=== PATIENT | female | born 1980 | race Caucasian/White ===

== ENCOUNTER → 2016-08-02 | Outpatient (CLI) | payer BC ==
[~2016-08-02] MED LIST: ADAL40KI INJ; ALBUAER INH; AMPH20TA2 PO; BUPR-79 PO; BUPR150T5 PO; EFFSR75 PO; GLC850 PO; LDN500 PO; MAGNESIUM PO; OXYC-57 PO; PHEN-775 PO; SPRN100 PO; VTMD
== END | disposition home or self-care (01) ==
LOC: C.PATHSPEC 17:14
PROVIDERS: ATTEND Obstetrics & Gynecology
DX: N92.6 Irregular menstruation, unspecified (principal); N85.8 Other specified noninflammatory disorders of uterus

== ENCOUNTER 2016-08-09 07:42 | Observation (INO) | payer BC ==
[2016-08-02 15:33] VITALS: BMI 46.0
--- NOTE | 2016-08-02 16:04 | PAT Medication Instructions ---
Service Date Aug 02, 2016. Current Home Medication List Adalimumab (Humira Pen), 40 MG INJ 2XMONTH Albuterol Sulfate (Proventil Hfa), 2 PUFFS INH PRN Amphetamine-Dextroamphetamine 20MG (Adderall 20MG), 20 MG PO TID Bupropion (Wellbutrin Sr), 350 MG PO QAM Etodolac (Etodolac), 500 MG PO BID Metformin HCl (Metformin HCl), 850 MG PO BID Venlafaxine Hcl (Effexor Extended Rel), 225 MG PO QAM [Magnesium], 225 MG PO QAM Medication Instructions For Your Scheduled Surgery Adalimumab (Humira Pen), 40 MG INJ 2XMONTH (check with prescribing physician for instructions) Etodolac (Etodolac), 500 MG PO BID (check with surgeon for instructions) - Hold the following medications 48 hours prior to surgery: Metformin HCl (Metformin HCl), 850 MG PO BID - Hold the following medications the morning of surgery: [Magnesium], 225 MG PO QAM Amphetamine-Dextroamphetamine 20MG (Adderall 20MG), 20 MG PO TID - Take the following medications the morning of surgery with a sip of water: Venlafaxine Hcl (Effexor Extended Rel), 225 MG PO QAM Bupropion (Wellbutrin Sr), 350 MG PO QAM Albuterol Sulfate (Proventil Hfa), 2 PUFFS INH PRN (bring with you to hospital morning of surgery) - Take the following medications as scheduled the night before surgery: Amphetamine-Dextroamphetamine 20MG (Adderall 20MG), 20 MG PO TID If you have any questions please call us at [phone] (Randa Gerardo PA-C ) or [phone] or [phone]
[2016-08-02 16:22] LABS: BASO % 0.3 %; BASO ABS # 0.04 K/uL (0-0.2); COMPLETE YES; EOS % 0.7 %; HEMATOCRIT 38.9 % (37-47); IG% 0.4 %; LYMPH % 23.5 %; LYMPH ABS # 2.96 K/uL (1.2-3.4); MEAN CELL VOLUME 83.5 fL (80-100); MEAN CORPUSCULAR HEMOGLOBIN 29.4 pg (25-34); MEAN CORPUSCULAR HGB CONC 35.2 g/dl (32-36); MEAN PLATELET VOLUME 10.6 fL (7.4-10.4); NEUT % 69.1 %; PLATELET COUNT 321 K/uL (130-400); RED BLOOD COUNT 4.66 M/uL (4.2-5.4); WHITE BLOOD COUNT 12.59 K/uL (4.8-10.8)
[2016-08-02 16:33] LABS: PARTIAL THROMBOPLASTIN RATIO 1.1; PROTHROMBIN TIME (PATIENT) 10.3 SECONDS (9.0-12.0)
[2016-08-02 16:45] LABS: ALT/SGPT 17 U/L (12-78); BLOOD UREA NITROGEN 14 mg/dl (7-18); BUN/CREATININE RATIO 16.3 (10-20); CALCIUM 8.8 mg/dl (8.5-10.1); CARBON DIOXIDE 29 mmol/L (21-32); CHLORIDE 105 mmol/L (98-107); CREATININE 0.86 mg/dl (0.60-1.20); GLUCOSE 102 mg/dl (70-99); POTASSIUM 3.6 mmol/L (3.5-5.1); SODIUM 141 mmol/L (136-145)
[2016-08-02 16:48] LABS: ALB/GLOB RATIO 0.8 (0.9-2); ALKALINE PHOSPHATASE 136 U/L (45-117); AST/SGOT 9 U/L (15-37)
[~2016-08-09] VITALS: Ht 162.6 cm; Wt 122.7 kg
[~2016-08-09 07:42] MED LIST changes: -BUPR150T5 PO; +CEFAZOLIN 3000 MG/65 ML D5W 50 ML IV SCH; +LACTATED RINGER'S 1000ML 1,000 ML IV SCH; -OXYC-57 PO; -PHEN-775 PO; -SPRN100 PO; -VTMD
[2016-08-09 08:04] VITALS: BP 150/77; PULSE 78; TEMP 36.9; O2SAT 98; Ht 162.6 cm; Wt 122.7 kg
[2016-08-09] MEDS ORDERED: NEOSTIGMINE METHYLSULFATE 5 MG/5 ML SYR ONE (08:37)
[2016-08-09] MEDS ORDERED: DEXAMETHASONE SOD INJ 4 MG/ML VIAL ONE (08:37)
[2016-08-09] MEDS ORDERED: PROPOFOL IV EMULSION 10 MG/ML 20 ML VIAL IV ONE (08:37)
[2016-08-09] MEDS ORDERED: FENTANYL CITRATE INJ 50 MCG/1 ML 2 ML VIAL ONE ×4 (08:37→12:46)
[2016-08-09] MEDS ORDERED: MIDAZOLAM HCL 1 MG/ML 2ML VIAL ONE (08:37)
[2016-08-09] MEDS ORDERED: GLYCOPYRROLATE INJ 0.2 MG/ML VIAL ONE ×2 (08:37→14:56)
[2016-08-09] MEDS ORDERED: ONDANSETRON INJ 2 MG/ML 2 ML VIAL ONE ×2 (08:37→11:51)
[2016-08-09] MEDS ORDERED: LIDOCAINE HCL 2% 2 ML VIAL (20MG/ML) ONE (08:37)
[2016-08-09] MEDS ORDERED: ROCURONIUM BROMIDE 10 MG/ML 5 ML VIAL ONE ×2 (08:37→14:56)
[2016-08-09] MEDS ORDERED: METHYLENE BLUE 0.5% 10 ML VIAL ONE (08:56)
[2016-08-09] MEDS ORDERED: BUPIVACAINE 0.5 % 5 MG/1 ML MPF 30ML VIAL ONE (08:56)
--- NOTE | 2016-08-09 08:58 | History & Physical Bridge Note ---
H&P Re-Evaluation Bridge Note: I have examined the patient, reviewed the History & Physical and in the interval since the performance of the History & Physical I have noted the following changes of clinical significance: No changes noted
[2016-08-09] MEDS ORDERED: MoRPHine SULFATE 10 MG/ML CARP/VIAL IV PRN (09:00)
[2016-08-09] MEDS ORDERED: ATROPINE SULFATE 0.1 MG/ML 5ML SYR IV PRN (09:00)
[2016-08-09] MEDS ORDERED: PROMETHAZINE HCL INJ 12.5 MG in SODIUM CHLORIDE 0.9% 50ML 50 ML IV PRN ×2 (09:00→12:30)
[2016-08-09] MEDS ORDERED: ONDANSETRON INJ 2 MG/ML 2 ML VIAL IV PRN ×2 (09:00→12:30)
[2016-08-09] MEDS ORDERED: MEPERIDINE HCL 25 MG/ML CARP IV PRN (09:00)
[2016-08-09] MEDS ORDERED: EpHEDrine SULFATE INJ 50 MG/ML AMP IV PRN (09:00)
[2016-08-09] MEDS ORDERED: OXYCODONE/ACETAMINOPHEN 5-325 TAB PO PRN (12:30)
[2016-08-09] MEDS ORDERED: KETOROLAC TROMETHAMINE 30 MG/ML VIAL IV. PRN (12:30)
[2016-08-09] MEDS ORDERED: SIMETHICONE 80 MG CHEW PO PRN (12:30)
[2016-08-09] MEDS ORDERED: IBUPROFEN 600 MG TAB PO PRN (12:30)
--- NOTE | 2016-08-09 12:41 | [facility] Post Operative Brief Note ---
Immediate Operative Summary Operative Date Aug 09, 2016. Pre-Operative Diagnosis Dysmenorrhea; Irregular Menses Post-Operative Diagnosis Same as preop Procedure(s) Performed Robot Assist Total Laparoscopic Hysterectomy, Bilateral Salpingectomy; Cystoscopy Surgeon Dr. Zamora Hand Paster Surgeon(s) Dr. Gilman Estimated Blood Loss 5 ml Findings Normal appearing uterus. Left ovary with small functional-appearing cyst, right ovary normal. Left fallopian tube normal, right tube with small paratubal cyst. Bowels appear normal, appendix not visualized. Specimens A. Cervix, Uterus, Bilateral Fallopian Tubes Drains bynum, clear yellow Anesthesia general Complication(s) None Disposition Recovery Room / PACU
[2016-08-09] MEDS ORDERED: OXYC-57 PO (12:42)
--- NOTE | 2016-08-09 12:43 | Discharge Instructions ---
Discharge Instructions Date of Service Aug 09, 2016. Admission Reason for Admission: Irregular Menstrual Cycle, Ovarian Cyst, Uterine C Discharge Discharge Diagnosis / Problem: s/p robotic total hysterectomy Discharge Goals Goal(s): Routine recovery after surgery Activity Recommendations Activity Limitations: per Instructions/Follow-up section . Instructions / Follow-Up Instructions / Follow-Up POST OPERATIVE: BOWEL FUNCTION/MEDICATIONS: 1. Constipation pain and discomfort are the most common complaints 5-7 days after surgery. Points 2-6 address the things that can help. 2. Chewing gum can help stimulate the gut and help improve digestion and motility. 3. Milk of Magnesia 1-2 times per day until return of bowel function. 4. Colace is a stool softener that helps. Taking this 2-3 times per day until bowel function returns to normal is highly recommended. 5. Dulcolax is a laxative that may be used if several days have passed without a bowel movement. Alternatively Miralax may be used daily instead. 6. Drink plenty of fluids as this will also reduce constipation. 7. Narcotic pain medications will be prescribed by your physician. They are safe to use and we encourage you to use them. If you are not allergic, ibuprofen will also be prescribed. Many patients will be able to transition off of the narcotic medications to ibuprofen by postoperative day 3. ACTIVITY RECOMMENDATIONS: 1. Get plenty of rest and listen to your body. If you are tired, take a nap. 2. You may shower, but do not take a tub bath until you see your doctor at the 2 week post operative visit. 3. Absolutely NO intercourse and nothing in the vagina until you are examined by your doctor at the 6 week visit. At that visit it will be determined when such activities can be resumed. This can range from 6-12 weeks after your surgery depending on healing time. 4. The main physical activity in the first week should be walking. By the second week you can slowly increase activity. There are no limits on walking up and down stairs. 5. Do not lift more than 5-10 lbs for 4 weeks. Remember the "one-handed rule", i.e. if you can lift something with only one hand it's likely okay. 6. Minimize tier lift operator like vacuuming and exercising for 4 weeks. "Overdoing it" can lead to incisions not healing, pain and vaginal bleeding , so again, listen to your body. 7. Driving can be resumed when you feel able. Do not drive within 24 hours of taking a narcotic medication. EXPECTATIONS: 1. Vaginal spotting, bleeding and discharge are common after surgery. There may even be an odor to the discharge which is often related to sutures used in the vagina. If you experience heavy vaginal bleeding, call the office number day or night [phone]. 2. Bladder discomfort is common after surgery from the catheter. This usually resolves in 1-2 weeks. 3. By the end of the 3rd or 4th week you should be feeling much better. It may take up to 6 weeks for your energy levels to return to normal. 4. Narcotic medications have side effects such as: dizziness, headache, nausea and/or vomiting. If you suspect your pain medication is causing problems, call our office and we may be able to prescribe an alternate medication. 5. The skin incisions are often covered with a liquid bandage. This will gradually peel off over time. CALL THE OFFICE IF YOU HAVE ANY OF THE FOLLOWIN. Temperature of 101 degrees or higher. 2. Severe abdominal or pelvic pain not relieved by pain medication. 3. Persistent nausea or vomiting. 4. Increased pain with urination or difficulty urinating. 5. Bright red bleeding that soaks more than 1 pad per hour. CONTACT PHONE NUMBERS: Main Office: [phone] Surgical Nurse: [phone] extension [phone] Avoid all tobacco products. If you need help to stop smoking, call [place]'s FREE QUITLINE at . This is a free call. Current Hospital Diet Patient's current hospital diet: Discharge Diet Recommended Diet: Regular Diet Procedures Procedures Performed: Robot Assist Total Laparoscopic Hysterectomy, Bilateral Salpingectomy; Cystoscopy Pending Studies Studies pending at discharge: no Medical Emergencies . Who to Call and When: Medical Emergencies: If at any time you feel your situation is an emergency, please call 911 immediately. . Non-Emergent Contact Non-Emergency issues call your: Primary Care Provider, President + Publisher . . "Provider Documentation" section prepared by Ester Zamora. VTE Core Measure Inpt VTE Proph given/why not?: Sharon Caro, SCD's
[2016-08-09] MEDS ORDERED: ESMOLOL HCL 10 MG/ML 10 ML VIAL ONE (12:50)
--- NOTE | 2016-08-09 12:51 | DIAGNOSTIC IMAGING REPORT ---
KUB CLINICAL HISTORY: Incorrect instrument count COMPARISON STUDY: None. FINDINGS: No metallic foreign bodies are identified within the abdomen or the pelvis. Two indeterminate radiodensities project of the right mid abdomen, measuring up to 1.2 cm. IMPRESSION: 1. No metallic foreign bodies within the abdomen or pelvis. 2. 2 radiodensities projecting over the right mid abdomen. While indeterminate, these are not metallic do not suggest retained foreign bodies. Electronically signed by: Radames Lopez M.D. 08/09/2016 12:49 PM Dictated Date/Time: 08/09/2016 12:48 PM
[2016-08-09] MEDS: FENTANYL CITRATE INJ 50 MCG/1 ML 2 ML VIAL IV PRN ×3 (12:55→13:05)
--- NOTE | 2016-08-09 13:26 | OPERATIVE REPORT ---
DATE OF OPERATION: 08/09/2016 PREOPERATIVE DIAGNOSES: Dysmenorrhea, irregular menses, and heavy menses. POSTOPERATIVE DIAGNOSES: Same. PROCEDURES PERFORMED: Robotic assisted total laparoscopic hysterectomy, bilateral salpingectomy and cystoscopy. SURGEON: Ester Zamora DO AGENTS' RECORDS CLERK: Dr. Gilman ESTIMATED BLOOD LOSS: 5 mL. FINDINGS: Normal appearing uterus. Left ovary with small functional appearing cyst. Right ovary, normal. Left fallopian tube, normal. Right tube with small paratubal cyst. Bowel appeared normal. Appendix not visualized. SPECIMENS: Cervix, uterus and bilateral fallopian tubes. DRAINS: Neumann, clear yellow. ANESTHESIA: General. COMPLICATIONS: None. DISPOSITION: Recovery room PACU. CONDITION: Stable and good. INDICATIONS FOR PROCEDURE: The patient is a 35-year-old G1, P1, who had presented with a multiyear history of cramping and irregular bleeding. She had tried IUD, oral contraceptive pills, and NuvaRing, but these were all unsuccessful. Her Mirena had caused increased cramping and bleeding. Oral contraceptive pills and NuvaRing were ineffective to control her symptoms. She had described cramping that occurred prior to, during, and after her periods and that period occurred randomly, sometimes 2-3 times per month. The cramping was interfering with her daily activities. The patient had a history of section x1 and laparoscopic gallbladder surgery. The patient's has had a vasectomy and they have completed child bearing. DESCRIPTION OF PROCEDURE: The patient was seen in the preoperative holding area, where risks, benefits, and alternatives to surgery were reviewed. She had previously signed informed consent in the office under no duress. All questions of the patient and her were answered. She was taken to the operating room, where general anesthesia was introduced. Ancef was infused as a preoperative antibiotic. A timeout was confirmed. She was prepared and draped in the usual sterile fashion with feet in Yellofin stirrups in the dorsal lithotomy position. A weighted speculum was placed in the vagina and cervix was visualized and the anterior lip was grasped with a single tooth tenaculum. Bilateral stay sutures were placed at 3 o'clock and 9 o'clock. The VCare uterine manipulator was placed after the cervix was dilated to admit this and the stay sutures were tied to the green cup. The Neumann catheter was placed and clear yellow urine was seen. Gloves and gown were changed and attention was then turned to the abdomen, where an infraumbilical incision was made using a scalpel and this was carried through to the underlying fascia using sharp and blunt technique. Using the open Cici technique, the supraumbilical trocar was placed. The camera was inserted and intra-abdominal placement was identified. CO2 gas was used to insufflate the abdomen to 15 mmHg. The patient was placed in Trendelenburg position. Under direct visualization, the bilateral lateral ports were placed with incisions for robotic arms 1, 2 and 3 and an first assistant manager port. The pelvis was visualized and the above noted findings were seen. Prior to placement of each trocar, the incision site was injected with 0.25% Marcaine for local anesthesia. They were placed under direct visualization. The robot was docked. There was a small omental adhesion to the anterior abdominal wall. This was easily taken down robotically with excellent hemostasis noted. First, the left fallopian tube was grasped and transected to the mesosalpinx and removed using the first assistant manager port and in a similar fashion, the right fallopian tube was transected and removed. The left round ligament was coagulated and transected as well as the left uteroovarian ligament. The anterior leaf of the broad ligament was then transected and the bladder was carefully dissected from the anterior aspect of the uterus. In a similar fashion, the right round ligament and uteroovarian ligament were coagulated and transected and the anterior leaf of the broad ligament was further dissected from the anterior aspect of the uterus. The uterine vessels were skeletonized and coagulated and cut. The vaginal cuff incision was made in a circumferential fashion using monopolar scissors and the uterus and cervix were delivered through the vagina. The vaginal cuff was closed using V-Loc suture in a running stitch. The cuff was inspected and excellent hemostasis was noted. The cuff was reinspected with a low pressure test with intraabdominal pressure. The CO2 pressure taken down to 0 and again excellent hemostasis was confirmed. Cystoscopy was performed to visualize the bladder and methylene blue was given and blue urine jets were confirmed bilaterally through the ureteral orifices. The dome of the bladder was inspected. No stitches were noted and no trauma to the bladder was noted. Attention was then turned to the abdomen. The robot was undocked and the trocars were removed from the abdomen. The supraumbilical fascial incision was reapproximated using 0 Vicryl and the skin incisions were reapproximated using 4-0 Vicryl in a subcuticular fashion. Dermabond was applied. The patient tolerated the procedure well and was taken to recovery area in stable and good condition. I attest to the content of the Intraoperative Record and any orders documented therein. Any exceptions are noted below. FELICIANO
--- NOTE | 2016-08-09 13:47 | Anesthesiology Progress Note ---
Anesthesia Post Op Note Date & Time Aug 09, 2016 at 13:46 Vital Signs Pain Intensity: 3 Vital Signs Past 12 Hours Date Time Temp Pulse Resp B/P Pulse Ox O2 Delivery O2 Flow Rate FiO2 08/09/16 13:30 108 19 133/84 95 08/09/16 13:30 36.1 109 19 08/09/16 13:25 102 19 08/09/16 13:25 101 19 116/75 97 08/09/16 13:20 115 20 135/74 95 08/09/16 13:20 116 08/09/16 13:15 108 20 129/79 95 08/09/16 13:15 108 08/09/16 13:10 104 25 146/82 95 08/09/16 13:10 104 25 08/09/16 13:05 118 20 08/09/16 13:05 118 20 141/84 97 08/09/16 13:00 106 22 130/84 98 08/09/16 13:00 106 22 08/09/16 12:55 105 20 129/86 99 08/09/16 12:55 105 20 08/09/16 12:50 103 16 133/80 100 08/09/16 12:50 103 16 08/09/16 12:47 139/78 08/09/16 12:45 36.4 93 16 139/78 100 Mask 10 08/09/16 08:04 36.9 78 18 150/77 98 Notes Mental Status: alert / awake / arousable, participated in evaluation Pt Amnestic to Procedure: Yes Nausea / Vomiting: adequately controlled Pain: adequately controlled Airway Patency, RR, SpO2: stable & adequate BP & HR: stable & adequate Hydration State: stable & adequate Anesthetic Complications: no major complications apparent
[2016-08-09 14:33] VITALS: O2SAT 98
[2016-08-09 14:45] VITALS: BP 112/76; PULSE 104; TEMP 36.9; O2SAT 95
[2016-08-09 15:50] VITALS: BP 121/77; PULSE 105; TEMP 36.7; O2SAT 96
[2016-08-09] MEDS: OXYCODONE/ACETAMINOPHEN 5-325 TAB PO PRN ×2 (15:52→19:54)
[2016-08-09] MEDS ORDERED: IV FLUIDS COMPLETED PRN (16:45)
[2016-08-09 19:30] VITALS: BP 106/71; PULSE 91; TEMP 36.6; O2SAT 97
[2016-08-09 20:22] LABS: HEMATOCRIT 39.4 % (37-47)
--- NOTE | 2016-08-17 01:19 | DISCHARGE SUMMARY ---
PREOPERATIVE DIAGNOSES: 1. Dysmenorrhea. 2. Irregular menses. 3. Heavy menses. DISCHARGE DIAGNOSES: Same. PROCEDURES PERFORMED: 1. Robotic assisted total laparoscopic hysterectomy. 2. Bilateral salpingectomy. 3. Cystoscopy. SURGEON: Ester Zamora DO BENDING ROLL OPERATOR: Dr. Taveras. COURSE OF STAY: The patient was admitted after undergoing the above noted procedures. Her course of stay was unremarkable and she was discharged to home the same day. She was discharged in stable and good condition. Follow up in office in 2 weeks. DIET: Advance as tolerated to regular diet. ACTIVITY: No heavy lifting and pelvic rest. MEDICATIONS: Percocet and Motrin. CONDITION ON DISCHARGE: Stable and good.
== END 2016-08-09 20:35 | disposition home or self-care (01) ==
LOC: C.ACU 07:42 → C.MS4N 08:05
PROVIDERS: ADMIT Obstetrics & Gynecology; ATTEND Obstetrics & Gynecology
DX: N94.6 Dysmenorrhea, unspecified (principal); N92.6 Irregular menstruation, unspecified; Q76.0 Spina bifida occulta; M19.90 Unspecified osteoarthritis, unspecified site; F32.9 Major depressive disorder, single episode, unspecified; Z98.890 Other specified postprocedural states; Z79.899 Other long term (current) drug therapy; Z90.49 Acquired absence of other specified parts of digestive tract; E66.01 Morbid (severe) obesity due to excess calories; Z68.42 Body mass index [BMI] 45.0-49.9, adult; Z83.3 Family history of diabetes mellitus
CPT/HCPCS: 58571; S2900

== ENCOUNTER → 2016-08-27 | Outpatient (CLI) | payer BC ==
[~2016-08-27] MED LIST changes: -CEFAZOLIN 3000 MG/65 ML D5W 50 ML IV SCH; -LACTATED RINGER'S 1000ML 1,000 ML IV SCH; +OXYC-57 PO
== END | disposition home or self-care (01) ==
LOC: C.LABSPEC 15:00
PROVIDERS: ATTEND Obstetrics & Gynecology
DX: L03.90 Cellulitis, unspecified (principal)

== ENCOUNTER → 2016-08-29 | Outpatient (CLI) | payer BC ==
[2016-08-29 15:19] LABS: URINE APPEARANCE CLEAR (CLEAR); URINE BILIRUBIN NEG (NEG); URINE COLOR YELLOW; URINE NITRITE NEG (NEG); URINE PH 7.5 (4.5-7.5); URINE SPECIFIC GRAVITY 1.013 (1.000-1.030); UROBILINOGEN NEG (NEG)
[2016-08-29 15:24] LABS: MANUAL MICROSCOPIC REQUIRED? NO; REVIEW REQ? NO
== END | disposition home or self-care (01) ==
LOC: C.LABSPEC 13:54
PROVIDERS: ATTEND Obstetrics & Gynecology
DX: R10.9 Unspecified abdominal pain (principal)

== ENCOUNTER → 2016-09-02 | Outpatient (CLI) | payer BC ==
[2016-09-02 09:41] LABS: BASO % 0.6 %; BASO ABS # 0.06 K/uL (0-0.2); COMPLETE YES; EOS % 3.6 %; HEMATOCRIT 40.9 % (37-47); IG% 0.4 %; LYMPH % 29.3 %; LYMPH ABS # 3.02 K/uL (1.2-3.4); MEAN CORPUSCULAR HEMOGLOBIN 28.5 pg (25-34); MEAN CORPUSCULAR HGB CONC 33.5 g/dl (32-36); MEAN PLATELET VOLUME 10.8 fL (7.4-10.4); MONO % 5.8 %; NEUT % 60.3 %; PLATELET COUNT 318 K/uL (130-400); RED BLOOD COUNT 4.81 M/uL (4.2-5.4); WHITE BLOOD COUNT 10.29 K/uL (4.8-10.8)
[2016-09-02 10:20] LABS: CREATININE 0.88 mg/dl (0.60-1.20)
== END | disposition home or self-care (01) ==
LOC: C.LAB 08:49
PROVIDERS: ATTEND Obstetrics & Gynecology
DX: G89.18 Other acute postprocedural pain (principal)